=== PATIENT | female | born 1960 | race Caucasian/White ===

== ENCOUNTER 2024-06-03 08:44 | Day surgery (SDC) | payer MEDICARE ==
[2024-06-01 12:24] VITALS: BMI 31.1
[2024-06-03] MEDS: IV FLUID CONTINUATION 1,000 ML IV ONE (09:31)
[2024-06-03] MEDS: LACTATED RINGERS 1,000 ML IV SCH (09:32)
[2024-06-03] MEDS: FAMOTIDINE 20 MG/2 ML VIAL IV PRN (09:39)
[2024-06-03] MEDS: DEXAMETHASONE SOD PHOSPHATE 4 MG/ML 1 ML VIAL IV ONE (09:41)
[2024-06-03] MEDS: ONDANSETRON 4 MG/2 ML VIAL IVP ONE (09:42)
[2024-06-03] MEDS: OXYMETAZOLINE 0.05% NASL SPRAY 1 SPRAY BOTTLE EA NOSTRIL PRN (09:55)
[2024-06-03] MEDS ORDERED: DEXAMETHASONE SOD PHOSPHATE 10 MG/ML 1 ML VIAL ONE (10:06)
[2024-06-03] MEDS ORDERED: fentaNYL (PF) 50 MCG/ML 2 ML AMP ONE (10:06)
[2024-06-03] MEDS ORDERED: LIDOCAINE 1% INJ 10MG/ML (20 ML MDV) ONE (10:06)
[2024-06-03] MEDS ORDERED: PHENYLEPHRINE 10 MG/ML VIAL ONE (10:06)
[2024-06-03] MEDS ORDERED: PROPOFOL 10 MG/ML 20 ML VIAL IV ONE (10:06)
[2024-06-03] MEDS ORDERED: MIDAZOLAM 2 MG/2 ML VIAL ONE (10:06)
[2024-06-03] MEDS ORDERED: SUCCINYLCHOLINE CHLORIDE 200 MG/10 ML VIAL IV ONE (10:06)
[2024-06-03] MEDS: LIDOCAINE 1%-EPI 1:100,000 20 ML VIAL SUBMUCOSAL ONE (10:24)
[2024-06-03] MEDS: BACITRACIN ZINC 500 UNIT/GM OINT 28.4 GM TUBE TOPICAL ONE (10:30)
--- NOTE | 2024-06-03 11:27 | P.OP ---
Date of Procedure: 06/03/24 Preoperative Diagnosis: deviated nasal septum Inferior turbinate hypertrophy Chronic sinusitis Postoperative Diagnosis: same Procedure(s) Performed: septoplasty Outfracture and submucous resection inferior turbinates Bilateral endoscopic sinus surgery including bilateral maxillary antrostomy with removal of tissue from exercise sinuses bilateral anterior posterior ethmoidectomy with frontal sinus exploration and bilateral sphenoidotomy with removal of tissue from the sphenoid sinuses and right anthony bullectomy Anesthesia: ANN Surgeon: Daniel Cox Estimated Blood Loss (ml): 10 Pathology: other (nasal septal bone and cartilage and sinus contents) Condition: stable Disposition: PACU Indications for Procedure: this 63-year-old white female with chronic nasal airway obstruction, congestion, recurrent and chronic sinusitis with CT showing evidence of chronic sinusitis Operative Findings: is a 7 deviated to the left with inferior turbinate hypertrophy bilaterally. There is obstruction of the ostium to complexes bilaterally with mucosal thic kening throughout the maxillary sinuses as well as ethmoid frontal and sphenoid sinuses as well as a large right anthony bullosa cell Description of Procedure: The patient was brought into the operative suite and placed in a supine position. The patient underwent induction of general anesthesia with oral endotracheal intubation without difficulty. The patient was prepped and draped in the usual aseptic fashion with the orbits in the operating field for monitoring to the case and the computed tomography scan was on the computer screen for review throughout the case. 1% lidocaine with 1 :100,000 epinephrine was infused submucosally into both sides of the nasal septum as well as the lateral nasal wall and anterior tips of the middle turbinates. While this was taking vasoconstrictive effect the inferior turbinates were infractured with Magnolia elevator and partial submucous resection of the inferior turbinates was performed with a portion of the submucosal soft tissue and the inferior turbinate bone removed with Coblation device. The inferior turbinates were then outfractured with the Magnolia elevator. A left hemitransfixion incision was then made with the mucoperichondrial and mucoperiosteal flap on the left elevated. The bony cartilaginous junction was disarticulated and the mucoperiosteal flap on the right was elevated. Bony nasal septal deformities were removed with Denys forceps and an inferior cartilaginous strip was removed leaving a full 1.5 cm caudal strut. Checking intranasally this corrected the nasoseptal deformities and the hemitransfixion incision was closed with a running 4-0 chromic suture. Full 0 endoscopic examination is performed bilaterally. Beginning on the left, the middle turbinate was medialized. The maxillary ostium was located with a ballpoint probe and an infundibulotomy was performed followed by uncinectomy. The maxillary antrostomy was enlarged at the expense of the anterior and posterior fontanelle taking care anteriorly not to injure the lacrimal bone. The maxillary sinus was evaluated with 30 and 70 endoscope .[Abnormal appearing tissue was removed from the maxillary sinus]. Anterior and posterior ethmoidectomy were then performed from anterior to posterior to the level of the skull base. The roof of the anterior ethmoid air cells were then cleaned from posterior to anterior using up-biting Blakesley forceps. the frontal sinusotomy was performed with 30 endoscope and up biting Blakesley forceps and graft forceps. The frontal sinus was then explored with 30 endoscope.[Abnormal tissue was removed from the frontal sinus]. the sphenoid sinus was opened under 0 endoscopic evaluation with straight suction and straight Blakesley forceps. The sphenoid sinus was then explored with 0 endoscope.[Abnormal tissue was removed from the sphenoid sinus]. Attention was then turned to the right where the procedures were followed as they had been on the left including medialization middle turbinate infundibulotomy uncinectomy and maxillary antrostomy with removal of tissue from the maxillary sinus with also some thick mucus, anterior posterior ethmoidectomy frontal sinusotomy with exploration and sphenoidotomy with removal of tissue from the sphenoid sinus. In addition the lateral half of the middle turbinate was removed to perform the anthony bullectomy with microdebrider as this was obstructing the middle meatus also [Nasopore nasal dressing was placed in the middle meatus bilaterally under direct visualization]. Bilateral Silverman airway splints coated with bacitracin ointment were placed and sutured transseptally with a 4-0 nylon suture. The patient was suctioned in oral gastric fashion and was allowed to emerge from general anesthesia having tolerated procedure well and was extubated in the operating suite and transferred to the postoperative recovery area in satisfactory condition.
[2024-06-03 11:49] VITALS: TEMP 97
[2024-06-03] MEDS: HYDROmorphone 0.5 MG/0.5 ML SYRINGE IVP PRN (11:56)
[2024-06-03] MEDS: HYDROcodone/APAP 5-325MG 1 EACH TAB PO ONE (13:04)
[2024-06-03 13:27] VITALS: RESP 16
[2024-06-03 14:08] VITALS: BP 150/89; PULSE 83
== END 2024-06-03 14:11 | disposition home or self-care (01) ==
LOC: OR 08:44
PROVIDERS: ATTEND Otolaryngology
DX: J34.2 Deviated nasal septum (principal); J34.3 Hypertrophy of nasal turbinates; J32.9 Chronic sinusitis, unspecified; I10 Essential (primary) hypertension; J44.9 Chronic obstructive pulmonary disease, unspecified; E66.9 Obesity, unspecified; J30.89 Other allergic rhinitis; J32.4 Chronic pansinusitis; E78.5 Hyperlipidemia, unspecified; K21.9 Gastro-esophageal reflux disease without esophagitis; Z79.899 Other long term (current) drug therapy; Z79.51 Long term (current) use of inhaled steroids
CPT/HCPCS: 88305; 88300; 30520; 31267; 31259; 31253; 31240; J2250; J0330; J1100 ×2; J0690; J2405; J2001; J3010; J3490; J2704; J1170; J2371